=== PATIENT | female | born 1995 | race African-American/Black ===

== ENCOUNTER 2023-01-08 12:36 | Emergency (ER) | payer MEDICAID, OTHER ==
[~2023-01-08] VITALS: Ht 172.7 cm; Wt 86.0 kg
[2023-01-08 12:44] VITALS: BP 112/64
[2023-01-08] MEDS ORDERED: MAGNESIUM/ALUMINUM HYDROXIDE/SIMETHICONE 30ML UDC PO STA (12:56)
[2023-01-08] MEDS ORDERED: ONDANSETRON HCL 4MG/2ML INJ IV STA (12:56)
[2023-01-08] MEDS ORDERED: SODIUM CHLORIDE 0.9% 1,000 ML IV ONE (13:00)
[2023-01-08 13:56] LABS: BASOPHILS % 0.6 % (0.0-2.0); EOSINOPHILS % 0.2 % (0.0-5.0); HEMATOCRIT. 39.5 % (36.0-48.0); HEMOGLOBIN. 12.9 g/dL (12.0-16.0); LYMPHOCYTES % 17.2 % (20.0-50.0); MEAN CORPUSCULAR VOLUME 82.6 fL (81.0-99.0); MEAN PLATELET VOLUME 8.9 fl (7.4-10.4); PLATELET 172 x1000/uL (130-400); RED BLOOD CELL COUNT 4.79 mill/uL (4.2-5.4); RED CELL DISTRIBUTION WIDTH 14.5 % (11.6-14.6)
[2023-01-08 14:04] LABS: CHLORIDE 109 mEq/L (98-107)
[2023-01-08 14:06] LABS: INR 1.1; PROTHROMBIN TIME 11.9 sec (9.6-11.0)
[2023-01-08 14:07] LABS: HCG SCREEN NEGATIVE
[2023-01-08 14:13] LABS: ETHANOL BLOOD 54 mg/dL (-10)
== END 2023-01-08 17:22 | disposition left against medical advice (07) ==
LOC: ER 12:36
DX: R10.84 Generalized abdominal pain (principal); R11.2 Nausea with vomiting, unspecified
CPT/HCPCS: 36415; 80053; 80320; 83690; 84703; 85025; 85610; 99281; J7030; G0480